=== PATIENT | female | born 1995 | race African-American/Black ===

== ENCOUNTER 2023-04-19 17:12 | Emergency (ER) | payer OTHER ==
[~2023-04-19] VITALS: Ht 167.6 cm; Wt 95.9 kg
[2023-04-19 17:20] VITALS: BP 138/92; PULSE 67; RESP 18; TEMP 98.6
[2023-04-19] MEDS ORDERED: IBUPROFEN 600 MG TABLET PO ONE (18:30)
[2023-04-19] MEDS ORDERED: CYCLOBENZAPRINE HCL 10 MG TABLET PO ONE (18:30)
[2023-04-19] MEDS ORDERED: IBUP-1492 PO (21:18)
[2023-04-19] MEDS ORDERED: CYCL-448 PO (21:18)
== END 2023-04-19 21:32 | disposition home or self-care (01) ==
LOC: EMS 17:13
DX: S20.20XA Contusion of thorax, unspecified, initial encounter (principal); M79.602 Pain in left arm; R51.9 Headache, unspecified; V89.2XXA Person injured in unspecified motor-vehicle accident, traffic, initial encounter; Y93.89 Activity, other specified; Y92.89 Other specified places as the place of occurrence of the external cause; Y99.8 Other external cause status
CPT/HCPCS: 71101; 99283